=== PATIENT | male | born 1955 | race Caucasian/White ===

== ENCOUNTER 2023-10-13 08:03 | Day surgery (SDC) | payer OTHER, SELFPAY ==
--- NOTE | 2023-10-13 | COLBX_PTH ---
PATHOLOGY RESULTS PATIENT: YOBANI SUTHERLAND LOC: EN U#:[id number] AGE/SX: 68/M ROOM: RE10/13/[address]: Dr. Harley Tate MD : 1955 BED: DIS: 10/13/2023 SPEC #: [id number] RECD: 10/13/23 13:01 STATUS: ANDREW KWAKU #: [id number] CARMELITA: 10/13/23 00:[address]: Harley Tate DEPT: SURGICAL PATHOLOGY RECD BY: Jim Payton ENTERED: 10/13/23 13:02 SP TYPE: COLON BX OTHR DR: [facility] Tissues: Ascending colon Ascending colon COLON BIOPSY Transverse colon Transverse colon Rectum, NOS Procedures: Surgery Specimen Level IV HEADER OPERATION: Colonoscopy, biopsy PRE-OP DIAGNOSIS: History of colonic polyps TISSUE SUBMITTED: A - Proximal ascending polyp 6 mm biopsy, B - Proximal ascending polyp 3 mm biopsy, C - Hepatic flexure polyp 6 mm biopsy, D - Mid transverse polyp biopsy 6 mm, E - Mid transverse polyp 3 mm biopsy, F - Rectal polyp biopsy 7 mm MICROSCOPIC DIAGNOSIS A. Proximal ascending polyp, biopsy: Tubular adenoma. B. Proximal ascending polyp, biopsy: Tubular adenoma. C. Hepatic flexure polyp, biopsy: Fragments of tubular adenoma. D. Mid transverse colon polyp, biopsy: Fragments of tubular adenoma. E. Mid transverse colon polyp, biopsy: Tubular adenoma. F. Rectal polyp, biopsy: Fragments of hyperplastic polyp. SJ:ari 10/16/2023 MICROSCOPIC DESCRIPTION Slides are reviewed. GROSS DESCRIPTION A - Received in fixative is one container labeled with the patient's name and designated proximal ascending polyp 6 mm biopsy. The specimen consists of two irregular fragments of light montalvo soft tissue that in aggregate measure 0.5 x 0.5 x 0.1 cm. The specimen is totally submitted in one cassette. B - Received in fixative is one container labeled with the patient's name and designated proximal ascending polyp 3 mm biopsy. The specimen consists of one irregular fragment of light montalvo soft tissue that measures 0.4 x 0.4 x 0.1 cm. The specimen is totally submitted in one cassette. C - Received in fixative is one container labeled with the patient's name and designated hepatic flexure polyp 6 mm biopsy. The specimen consists of multiple irregular fragments of light montalvo soft tissue that in aggregate measure 1.0 x 0.3 x 0.1 cm. The specimen is totally submitted in one cassette. D - Received in fixative is one container labeled with the patient's name and designated mid transverse polyp biopsy 6 mm. The specimen consists of multiple irregular fragments of light montalvo soft tissue that in aggregate measure 1.2 x 0.5 x 0.1 cm. The specimen is totally submitted in one cassette. E - Received in fixative is one container labeled with the patient's name and designated mid transverse polyp 3 mm biopsy. The specimen consists of two irregular fragments of light montalvo soft tissue that in aggregate measure 0.6 x 0.3 x 0.1 cm. The specimen is totally submitted in one cassette. F - Received in fixative is one container labeled with the patient's name and designated rectal polyp biopsy 7 mm. The specimen consists of multiple irregular fragments of light montalvo soft tissue that in aggregate measure 1.0 x 0.3 x 0.1 cm. The specimen is totally submitted in one cassette. / YADIRA:ari 10/13/23 TC:1 CPT: 37056 x6
--- NOTE | 2023-10-13 08:11 | PCM.HP.BLA ---
History and Physical Date of Admission: 10/13/23 Visit Reasons: COLONOSCOPY Chief Complaint: Colonoscopy Consult Interactive Account Manager Required: No Is patient in pain?: No Allergies No Known Allergies Allergy (Verified 08/28/23 09:03) Medications atenolol 100 mg tablet 100 mg PO DAILY 09/05/17 [History Confirmed 08/28/23] lisinopril 20 mg-hydrochlorothiazide 12.5 mg tablet (Zestoretic) 1 ea PO DAILY 09/05/17 [History Confirmed 08/28/23] levothyroxine 25 mcg tablet 100 mcg PO DAILY 08/28/23 [History Confirmed 08/28/23] PFSH Medical History (Updated 08/28/23 @ 09:00 by Erika Garduno) COPD (chronic obstructive pulmonary disease) Hypertension Personal history of colonic polyps Surgical History (Updated 08/28/23 @ 09:01 by Erika Garduno) History of lung surgery Family History (Updated 08/28/23 @ 09:01 by Erika Garduno) Father CancerMother Hypertension Social History (Updated 08/28/23 @ 09:02 by Erika Garduno) Smoking Status: Current every day smoker alcohol intake: current substance use type: does not use HPI HPI HPI: 68-year-old gentleman is [facility] by [facility] and a written copy of my surgical consult recommendations will return to them. The patient has a personal history of colon polyp with surveillance at [address] Jett Chen on April 14, 2020 performed a colonoscopy. A 8 mm polyp was seen in the ascending colon and a 1 cm polyp in the sigmoid colon. The ascending colon polyp was a tubulovillous adenoma as well as the sigmoid colon polyp. Moderately severe diverticulosis was identified. It is of note that the patient had a colonoscopy prior to that January 11, 2019 also demonstrating a polyp from the ascending colon and one from the sigmoid colon. Prior to that he had had a colonoscopy November 2015 with 2 polyps in the sigmoid colon and previous to that October 22, 2012 with a 2 cm polyp in the ascending colon regarding a polypectomy and Endo Clip and an additional polyp in the sigmoid colon. Past year April 2023 the patient had a two thirds partial lung resection on the left for lung cancer. He claims the remaining area has 2 nodules. He is scheduled at [facility] September [address] to look at those nodules. He continues to smoke cigarettes at greater than a pack per day. He has been a 53-year smoker. He does not feel that he can stop. He does get slightly dyspneic on exertion. Denies any chest pain. Denies myocardial infarction or stroke. He is not on any anticoagulants. He denies any bright red blood per rectum or melena. No abdominal pain. ROS General General: Yes weight change and fatigue; No appetite, colon cancer, breast cancer or weakness HEENT HEENT: No difficulty swallowing, eye injury, eye surgery, swollen glands or hoarseness Endo Endocrine: No thyroid disease, diabetes mellitus, thyroid cancer, Hair loss, heat intolerance or cold intolerance Skin Skin: No rash or changing moles Breast Breast: No left breast lump, right breast lump, nipple discharge, breast pain, abnormal mammogram, abnormal US or breast enlargement Musc Musculoskeletal: No back problems, arthritis, rheumatoid arthritis, gout or joint pain Cardio Cardiovascular: Yes high blood pressure; No murmur, pacemaker, heart disease, atrial fibrillation, heart attack, heart stent, palpitations, shortness of breat with exertion or chest pain Psych Psychiatric: No depression, anxiety or hearing voices Resp Respiratory: Yes shortness of breath, No sleep apnea, Yes cough, Yes COPD, No asthma, No emphysema and No wheezing Gastro Gastrointestinal: No abdominal pain, No nausea or vomiting, No diarrhea, No constipation, No blood in stool, No acid reflux, No hemorrhoids, Yes ulcers, No gallbladder problem and No black,tarry stools Fabrizio Hematologic: No blood thinners, No blood disorders, No bleeding, No anemia and No blood clots Neuro Neurologic: No system reviewed and no additional complaints, except as documented, No as per HPI, No abnormal gait, No abnormal hearing, No abnormal movements, No abnormal speech, No behavioral changes, No burning sensations, No confusion, No convulsions, No disequilibrium, No dizziness, No localized weakness, No frequent falls, No headache(s), No lack of coordination, No loss of vision, No memory loss, No numbness, No other visual disturbances, No radicular pain, No restless legs, No sensory deficit, No syncope, No tingling, No tremor(s), No weakness and No other Exam Const General: cooperative, comfortable and no acute distress Nutritional Appearance: average body habitus [facility] Head: normal to inspection Eyes General: appearance normal, both eyes and all related structures Neck Neck: normal visual inspection Chest Other: Multiple incisions left posterior anterior lateral left chest. All well-healed. Diminished breath sounds on the left with some wheeze. Increased AP diameter with more normal breath sounds on the right. Resp Other: See above Cardio Rate: regular rate Rhythm: regular rhythm GI Palpation: soft and no hepatosplenomegaly Musc Cervical Spine: normal cervical lordosis Skin General: no rashes or lesions noted Neuro General: patient alert, patient awake and patient oriented x3 Psych Appearance: grossly normal Assessment and Plan Assessment and Plan (1) Personal history of colonic polyps: Status: Acute Plan: 68-year-old gentleman with a previous history of colon polyps tubulovillous adenomas although no dysplasia clearly at increased risk. Recent history of left lung cancer resection with additional imaging planned because of remaining lobe abnormality. I have discussed with him a colonoscopy with possible biopsy or polypectomy as indicated. The patient has had polyps on every single colonoscopy so he is aware that he is at increased risk for requiring additional polyp removal. He is aware of the risk of intervention is not low. Because of his recent lung surgery I recommend monitored anesthesia care. He will get his bowel prep from the NH as he had already mixed his previous material. He has had an opportunity ask and have questions answered. We will schedule procedure at his discretion. I appreciate the opportunity of assisting with his surgical care. Naturally I have encouraged the patient to stop his tobacco use. He suggest to me that that is not feasible at this time. Copy: [facility] Harley Tate M.D., F.A.C.S. I have examined the patient and the H&P has been reviewed. There are no clinical changes since date of exam. Harley Tate M.D., F.A.C.S.
[2023-10-13 08:33] VITALS: BP 139/74; PULSE 62; RESP 16; TEMP 36.5; O2SAT 99; BMI 20.5
[2023-10-13] MEDS: Lactated Ringers 1,000 ML 15 ML IV (08:36)
[2023-10-13 10:01] VITALS: BP 109/60; BP 139/74; PULSE 63; RESP 16; TEMP 36.5; O2SAT 100
--- NOTE | 2023-10-13 10:03 | OP.CCLET_ITS ---
10/13/2023 [facility] Re : Colonoscopy procedure for Kiet [facility] This procedure was performed on Friday, October 13, 2023. My impressions and recommendations are as follows: Impressions : - Non-thrombosed external hemorrhoids, non-thrombosed internal hemorrhoids, internal hemorrhoids that prolapse with straining, but spontaneously regress to the resting position (Grade II) and enlarged prostate found on digital rectal exam. - One 6 mm polyp in the proximal ascending colon, removed with a cold biopsy forceps. Resected and retrieved. - One 3 mm polyp in the proximal ascending colon, removed with a cold biopsy forceps. Resected and retrieved. - One 6 mm polyp at the hepatic flexure, removed with a cold biopsy forceps. Resected and retrieved. - One 6 mm polyp in the mid transverse colon, removed with a cold biopsy forceps. Resected and retrieved. - One 3 mm polyp in the mid transverse colon, removed with a cold biopsy forceps. Resected and retrieved. - One 7 mm polyp in the rectum, removed with a cold biopsy forceps. Resected and retrieved. Recommendations : - Repeat colonoscopy in 3 years for surveillance based on pathology results. - Discharge patient to home. - Resume previous diet. - Continue present medications. - Telephone my office for pathology results in 1 week. My findings are described in the full procedure note, which is enclosed. If I can be of further assistance, please feel free to contact me at Doctor phone number(s): Work: . Sincerely, Harley Tate MD 10/13/2023 10:03:26 AM This report has been signed electronically.
--- NOTE | 2023-10-13 10:03 | OP.COLON_ITS ---
Patient Name: Kiet Dietz Procedure Date: 10/13/2023 9:24 AM Date of : 1955 Age: 68 Procedure: Colonoscopy Indications: High risk colon cancer surveillance: Personal history of colonic polyps Providers: Harley Tate MD Medicines: See the Anesthesia note for documentation of the administered medications Patient Profile: Last Colonoscopy: April 2020. Complications: No immediate complications. Procedure: Pre-Anesthesia Assessment: - Prior to the procedure, a History and Physical was performed, and patient medications and allergies were reviewed. The patient's tolerance of previous anesthesia was also reviewed. The risks and benefits of the procedure and the sedation options and risks were discussed with the patient. All questions were answered, and informed consent was obtained. Prior Anticoagulants: The patient has taken no anticoagulant or antiplatelet agents. ASA Grade Assessment: II - A patient with mild systemic disease. After reviewing the risks and benefits, the patient was deemed in satisfactory condition to undergo the procedure. After I obtained informed consent, the scope was passed under direct vision. Throughout the procedure, the patient's blood pressure, pulse, and oxygen saturations were monitored continuously. The Colonoscope was introduced through the anus and advanced to the ileocecal valve. The colonoscopy was performed without difficulty. The patient tolerated the procedure well. The quality of the bowel preparation was good. The ileocecal valve and the appendiceal orifice were photographed. Scope In: 9:37:30 AM Scope Withdrawal Time 0 hours 15 minutes 26 seconds Scope Out: 9:56:20 AM Total Procedure Duration Time 0 hours 18 minutes 50 seconds Findings: The digital rectal exam findings include non-thrombosed external hemorrhoids, non-thrombosed internal hemorrhoids, internal hemorrhoids that prolapse with straining, but spontaneously regress to the resting position (Grade II) and enlarged prostate. A 6 mm polyp was found in the proximal ascending colon. The polyp was sessile. The polyp was removed with a cold biopsy forceps. Resection and retrieval were complete. A 3 mm polyp was found in the proximal ascending colon. The polyp was sessile. The polyp was removed with a cold biopsy forceps. Resection and retrieval were complete. A 6 mm polyp was found in the hepatic flexure. The polyp was sessile. The polyp was removed with a cold biopsy forceps. Resection and retrieval were complete. A 6 mm polyp was found in the mid transverse colon. The polyp was sessile. The polyp was removed with a cold biopsy forceps. Resection and retrieval were complete. A 3 mm polyp was found in the mid transverse colon. The polyp was sessile. The polyp was removed with a cold biopsy forceps. Resection and retrieval were complete. A 7 mm polyp was found in the rectum. The polyp was sessile. The polyp was removed with a cold biopsy forceps. Resection and retrieval were complete. Impression: - Non-thrombosed external hemorrhoids, non-thrombosed internal hemorrhoids, internal hemorrhoids that prolapse with straining, but spontaneously regress to the resting position (Grade II) and enlarged prostate found on digital rectal exam. - One 6 mm polyp in the proximal ascending colon, removed with a cold biopsy forceps. Resected and retrieved. - One 3 mm polyp in the proximal ascending colon, removed with a cold biopsy forceps. Resected and retrieved. - One 6 mm polyp at the hepatic flexure, removed with a cold biopsy forceps. Resected and retrieved. - One 6 mm polyp in the mid transverse colon, removed with a cold biopsy forceps. Resected and retrieved. - One 3 mm polyp in the mid transverse colon, removed with a cold biopsy forceps. Resected and retrieved. - One 7 mm polyp in the rectum, removed with a cold biopsy forceps. Resected and retrieved. Recommendation: - Repeat colonoscopy in 3 years for surveillance based on pathology results. - Discharge patient to home. - Resume previous diet. - Continue present medications. - Telephone my office for pathology results in 1 week. Procedure Code(s): --- Professional --- 94399, Colonoscopy, flexible; with biopsy, single or multiple Diagnosis Code(s): --- Professional --- Z86.010, Personal history of colonic polyps D12.2, Benign neoplasm of ascending colon D12.3, Benign neoplasm of transverse colon (hepatic flexure or splenic flexure) D12.8, Benign neoplasm of rectum K64.1, Second degree hemorrhoids K64.4, Residual hemorrhoidal skin tags N40.0, Benign prostatic hyperplasia without lower urinary tract symptoms CPT copyright 2021 [employer]. All rights reserved. The codes documented in this report are preliminary and upon certified medical records coder review may be revised to meet current compliance requirements. Harley Tate MD 10/13/2023 10:03:26 AM This report has been signed electronically. Number of Addenda: 0 Note Initiated On: 10/13/2023 9:24 AM
[2023-10-13 10:05] VITALS: BP 139/74; BP 81/50; PULSE 72; RESP 16; O2SAT 100
[2023-10-13 10:11] VITALS: BP 104/62; BP 139/74; PULSE 61; RESP 16; TEMP 36.6; O2SAT 100
[2023-10-13 10:29] VITALS: BP 139/74
== END 2023-10-13 10:35 | disposition home or self-care (01) ==
LOC: EN 08:05 → AC 08:06
PROVIDERS: Visit Provider Surgery
PROC: 0DJD8ZZ Inspection of Lower Intestinal Tract, Via Natural or Artificial Opening Endoscopic (ICD-10-PCS; CPT 45378; principal; 2023-10-13 09:10)
DX: Z12.11 Encounter for screening for malignant neoplasm of colon (principal); J44.9 Chronic obstructive pulmonary disease, unspecified; Z86.010 Personal history of colon polyps; I10 Essential (primary) hypertension; K62.1 Rectal polyp; F17.210 Nicotine dependence, cigarettes, uncomplicated; N40.0 Benign prostatic hyperplasia without lower urinary tract symptoms; K63.5 Polyp of colon; Z79.899 Other long term (current) drug therapy; Z85.118 Personal history of other malignant neoplasm of bronchus and lung; K64.1 Second degree hemorrhoids; K64.4 Residual hemorrhoidal skin tags
CPT/HCPCS: 45380; 88305; J7120; J2405

== ENCOUNTER → 2024-07-05 | Outpatient (CLI) | payer OTHER, SELFPAY ==
--- NOTE | 2024-07-05 15:06 | CT_ITS ---
INDICATION: Asymptomatic microscopic hematuria EXAMINATION: CT ABDOMEN AND PELVIS WITH AND WITHOUT CONTRAST - CT Abdomen And Pelvis WO/W Contrast Injection TECHNIQUE: Helically acquired images were obtained of the abdomen and pelvis both before and after IV contrast. The protocol utilizes one or more of the following dose reduction techniques: automated exposure control, adjustment of mA and/or kV according to patient size,and/or use of iterative reconstruction technique. IV Contrast dosage and agent: 100 use of Isovue-370 Oral contrast: None. RADIATION DOSAGE (If Supplied By Facility): CTDIvol = ( 12.91 ) mGy, DLP = ( 1686.64 ) mGycm COMPARISON: February 01, 2006 FINDINGS: LOWER CHEST: There is a 7.4 mm subpleural nodule within the right lower lobe that has increased in size since the prior examination previously measuring 4.4 mm. No cardiomegaly or pericardial effusion. LIVER: Within the dome of the right hepatic lobe there is an 8 mm and 6 mm low-attenuation focus that fills in on the delayed images. There is a low-attenuation focus with nodular enhancement within the dome of the left hepatic lobe suggestive of a hemangioma. GALLBLADDER AND BILIARY TREE: There is a gallstone within the gallbladder. No gallbladder distension or wall edema. No intra- or extrahepatic biliary ductal dilation. PANCREAS: No focal cystic or solid mass. SPLEEN: Normal size without focal cystic or solid mass. ADRENAL GLANDS: No nodules. KIDNEYS AND URETERS: Normal renal size and position. No hydronephrosis. There are bilateral renal cysts. There is an exophytic 5 cm cyst arising from the left kidney with a thin septation consistent with a cyst minimally complex cyst. PERITONEUM: No ascites or free air. No other fluid collection. BOWEL: There is a small hiatal hernia. No evidence of acute appendicitis. No stomach or bowel distension. No focal inflammatory change. LYMPH NODES: No enlarged mesenteric or retroperitoneal lymph nodes. VESSELS: Aorta is non-dilated. There are vascular calcifications. URINARY BLADDER: There is bladder wall thickening. REPRODUCTIVE ORGANS: The prostate gland is enlarged. There is a stable curvilinear penile calcification. ABDOMINAL WALL: No discrete abdominal or pelvic wall hernia. BONES: No lytic or blastic abnormality. CT/CT Abd/Pelvis W/WO Contrast IMPRESSION: Circumferential wall thickening of the urinary bladder may be secondary to cystitis. Enlarged prostate gland. 8 and 6 mm low-attenuation foci within the right hepatic lobe which may reflect hemangiomas, consider MRI of the abdomen with contrast for further characterization. Interval enlargement of 7.4 mm right lower lobe nodule, recommend follow-up chest CT in 3 months, PET/CT or biopsy. Cholelithiasis. Electronically Signed: Cristiana Gardner MD at 16:56 EDT ,
[2024-07-05 15:15] LABS: CREATININE FINGERSTICK 1.2 mg/dL (0.70-1.30); EGFR FINGERSTICK > 60.0000 mL/min (>60)
== END | disposition home or self-care (01) ==
PROVIDERS: Referring Provider Family Medicine; Visit Provider Family Medicine
DX: R31.21 Asymptomatic microscopic hematuria (principal)
CPT/HCPCS: 74178; Q9967; A4216